=== PATIENT | male | born 1955 | race Caucasian/White ===

== ENCOUNTER 2016-12-14 16:39 | Emergency (ER) | payer SELFPAY ==
[~2016-12-14] VITALS: Ht 200.7 cm; Wt 100.0 kg
[~2016-12-14 16:39] MED LIST: ACET325 PO; GUAI100S6 PO; IBUP400T20 PO; PROM25SU8 PO
[2016-12-14 16:40] VITALS: BP 120/77; PULSE 96; RESP 17; TEMP 97.8; O2SAT 98
--- NOTE | 2016-12-14 17:32 | PD ---
HPI Chief Complaint: Anxiety Time Seen by Provider: 17:31 Travel History International Travel<30 days: No Contact w/Intl Traveler<30days: No Traveled to known affect area: No History of Present Illness HPI 61-year-old male presents to the emergency department for evaluation of anxiety. Patient has many life stressors going on right now. 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 He is dealing with issues with his son. He does not go into details regarding this but his states he is having frequent panic attacks. 3 days ago he was started on Lexapro. His anxiety continues to worsen. He was prescribed 0.25 mg Xanax 2 times a day yesterday from his primary care provider. Patient states that he does not like how this feels. Patient continues to talk in circles and is focused on things that he needs to do and destroying his life. He is concerned he'll never be well. Denies suicidal or homicidal ideations. He has no other symptoms reported this time. [facility] Past Medical History Anxiety: Yes Diminished Hearing: No Past Surgical History Abdominal Surgery: Yes (hernia repair) Social History Alcohol Use: No Tobacco Use: No Allergies-Medications (Allergen,Severity, Reaction): Coded Allergies: No Known Allergies (Verified , 12/14/16) Reported Meds & Prescriptions Reported Meds & Active Scripts Active Vistaril (Hydroxyzine Pamoate) 25 Mg Cap 25 Mg PO QID PRN Reported Xanax (Alprazolam) 0.5 Mg Tab 0.5 Mg PO BID PRN Lexapro (Escitalopram Oxalate) 5 Mg Tab 5 Mg PO DAILY@1600 Review of Systems Except as stated in HPI: all other systems reviewed are Neg Physical Exam Narrative GENERAL: Well-nourished, well-developed patient, in no acute distress. Patient is very anxious during my time with him. He frequently grabs and rubs his hands. He is not well focused. He is having obsessive thoughts. SKIN: Focused skin assessment warm/dry. HEAD: Normocephalic. EYES: No scleral icterus. No injection or drainage. NECK: Supple, trachea midline. No JVD or lymphadenopathy. CARDIOVASCULAR: Regular rate and rhythm without murmurs, gallops, or rubs. RESPIRATORY: Breath sounds equal bilaterally. No accessory muscle use. GASTROINTESTINAL: Abdomen soft, non-tender, nondistended. MUSCULOSKELETAL: No cyanosis, or edema. BACK: Nontender without obvious deformity. No CVA tenderness. Data Data Last Documented VS Vital Signs Date Time Temp Pulse Resp B/P Pulse Ox O2 Delivery O2 Flow Rate FiO2 12/14/16 22:03 71 16 142/78 98 Room Air 12/14/16 16:40 97.8 Orders Hydroxyzine Pamoate (Vistaril) (12/14/16 18:15) Psych Screen (12/14/16 18:16) Diet Heart Healthy (12/15/16 Breakfast) Hydroxyzine Pamoate (Vistaril) (12/14/16 22:00) Lorazepam (Ativan) (12/14/16 22:00) MDM Medical Decision Making Medical Screen Exam Complete: Yes Emergency Medical Condition: Yes Medical Record Reviewed: Yes Differential Diagnosis Mood disorder versus personality disorder versus adjustment reaction disorder Narrative Course 61-year-old male presents to the emergency department with his for evaluation. Patient is having frequent panic attacks. His states that this causes her to be scared because she cannot talk him out of these. She states he grabs his hearing he panics and he pieces. Turns red and he breathes very quickly. His friend Dr. Herrera who is a primary care provider, called and spoke to me and states over the last week he has deteriorated quickly. He is having obsessive thoughts and is demonstrating very obsessive-compulsive behaviors. Dr. Herrera advised them to come to the emergency department for evaluation. Patient is not suicidal homicidal. He is obviously anxious and has difficult time focusing during conversation. Psychiatric screen has been ordered. After discussion, patient is recommended to stay to speak with psychiatry in the morning. Patient's is concerned that the patient needs to be switched from Lexapro to Zoloft to help with his obsessive-compulsive tendencies. They're very concerned about his excessive anxiety and its impact on his life currently. goes home. Patient will stay overnight to speak with psychiatry in the morning. He is given 2 mg Ativan by mouth. He is placed in a hospital bed for comfort. Diagnosis Primary Impression: Adjustment reaction with anxiety Additional Impression: Panic attack due to exceptional stress Referrals: Primary Care Physician Psychiatrist Patient Instructions: Anxiety (ED), General Instructions Additional Instructions: Continue medication as prescribed Follow-up primary care provider Seek psychiatry evaluation Return immediately with any acute worsening of symptoms Med/Other Pt SpecificInfo: Prescription(s) given Scripts Hydroxyzine Pamoate (Vistaril)25 Mg Cap25 Mg PO QID PRN (ANXIETY) #20 CAP Ref 0 Prov:Rosey Hull 12/14/16 Condition: Stable Rosey Hull Dec 14, 2016 17:31
[2016-12-14] MEDS ORDERED: LEXA5TAB PO (17:52)
[2016-12-14] MEDS ORDERED: ALPR.5 PO (17:52)
[2016-12-14] MEDS ORDERED: hydrOXYzine PAMOATE 25 MG CAP PO ONE (18:15)
[2016-12-14] MEDS ORDERED: VIST25CA PO (20:04)
[2016-12-14] MEDS ORDERED: LORazepam 2 MG TAB PO ONE (22:00)
[2016-12-14 22:03] VITALS: BP 142/78; PULSE 71; RESP 16; O2SAT 98
[2016-12-15 08:48] VITALS: BP 172/80; PULSE 111; RESP 16; TEMP 98.9; O2SAT 98
[2016-12-15] MEDS ORDERED: CLON.5 PO (11:03)
--- NOTE | 2016-12-15 20:14 | MB ---
cc: RAUL CONNORS MD DATE OF CONSULTATION 12/15/2016 REQUESTING PHYSICIAN Emergency department. REASON FOR CONSULTATION Voluntary psychiatric evaluation. HISTORY OF PRESENT ILLNESS Mr. Sherwood is a 61-year-old male with no reported past psychiatric history who presented voluntarily for psychiatric evaluation for complaints of anxiety. Case discussed. Chart reviewed. Reviewing the electronic medical record, I see no prior psychiatric contact within our system. I do see that the patient was given 2 mg of Ativan last night as well as some Vistaril slightly earlier in the evening. The patient seen and examined. Chart reviewed. Case discussed with nurse in the alpha pod. On my examination today, the patient presents as fairly anxious. He describes chiefly generalized anxiety with a lot of anxious rumination which results in disrupted sleep. Concentration is poor. Appetite is somewhat poor. 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 He also describes occasional periods of panic. No obsessions or compulsions. No other anxious symptoms. He does admit to some difficulties with a low mood as a consequence of his high anxiety and admits that he feels somewhat like a failure. Some feelings of anhedonia. He denies any suicidal or homicidal ideation, however, on direct questioning. No hypomanic or manic symptoms. He denies any audiovisual hallucinations and I can elicit no delusional beliefs. The remainder of the psychiatric ROS is negative. PAST PSYCHIATRIC HISTORY The patient denies a history of inpatient or outpatient psychiatric treatment. He denies a history of suicide attempts. He has recently seen his general practitioner for this anxiety and was started on Lexapro 5 mg daily as well as Xanax 0.25 mg twice daily as needed. He has been taking these for the last few weeks. FAMILY HISTORY The patient reports depression and anxiety in his father and brother. No other reported family psychiatric history. No reported family history of suicide. CHEMICAL DEPENDENCY HISTORY The patient denies any abuse of drugs or alcohol. SOCIAL HISTORY The patient reports that he lives with his of 41 years. They have four adult children. 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 He says that when several of his competitive were taking out television advertisements, he did not and so his business has declined. He denies any or legal history. Denies any access to guns or firearms. He is a [employer]. PAST MEDICAL HISTORY No reported significant medical problems. The patient notes that he had complete physical recently and was found to be in good health. He is unsure if he has had thyroid function tests. REVIEW OF SYSTEMS No reported headache, vision or hearing changes, chest pain, shortness of breath, bowel or bladder issues. No other physical complaints. PHYSICAL EXAMINATION VITAL SIGNS: Temperature 98.9, pulse 111, respirations 16, blood pressure 172/80, pulse oximetry 98% on room air. Physical examination was completed by the ED provider. On my examination today, the patient appears to be in no acute physical distress. No motor abnormalities noted. LABORATORY No laboratories were obtained this visit. It appears that the patient only has lab work from 2011 on file. I see no thyroid function tests on file. MENTAL STATUS EXAM The patient is in hospital gown. He is well-groomed. He is awake and alert and oriented x3. No evidence of delirium. No abnormal motor movements noted. Speech is within normal limits for rate, tone and volume. Language and fund of knowledge seem above-average. Mood is somewhat down and affect is blunted. Thought process circumstantial as can be seen with patients with anxiety disorders. No loosening of associations though. No evident delusions. Denies audiovisual hallucinations. Denies suicidal or homicidal ideation. Insight and judgment are fair. ASSESSMENT/PLAN 1. Mixed anxiety disorder, F41.3 2. Rule out some degree of comorbid depression. This is a 61-year-old male with psychiatric history as reported above who presently came voluntarily to the emergency department for psychiatric evaluation. The patient describes a high degree of generalized anxiety with some features of panic. There may also be some decrement in his mood, but this seems more reactive to the anxiety than independent of it. The patient is presently medicated with low dose of Lexapro and Xanax. Given the severity of his anxiety problem, I think that titration of the Lexapro is warranted, although it is necessary to titrate this agent slowly as many SSRIs can be perceived as behaviorally activating if titrated too quickly, which can exacerbate anxiety. I have recommended that he talk with his general practitioner about titrating this by 5 mg a week or every other week to a target dose of 10-20 mg per day. Given that his anxiety is occurring throughout the day, I think that a longer acting benzodiazepine makes more sense while we wait for the SSRI to kick in. I have discussed the risks and benefits of a trial of Klonopin with the patient to replace his Xanax, and I have provided him with a seven day prescription for Klonopin 0.25 mg twice daily with subsequent refills to be provided by outpatient provider. The patient is not presently suicidal or homicidal. He appears to be attending to his basic needs. Consequently the patient does not meet Falk Act criteria, nor does he require involuntary psychiatric hospitalization. I have offered him voluntary psychiatric hospitalization for the management of his anxiety but he has declined. I have counseled the patient regarding warning signs for need to return to the psychiatric emergency room as part of a general safety plan. The patient also contacted his by telephone and I had an extensive teleconference with the patient and discussing the patient's diagnosis, prognosis and treatment plan in great detail. All questions answered. The patient also to be provided with an outpatient psychiatric referral packet. The patient is psychiatrically cleared for discharge from the ED. Thank you very much for this consultation. Raul GILBERT /11:30 AM /7:41 PM SARAHY
== END 2016-12-15 11:28 | disposition home or self-care (01) ==
LOC: NEPA 16:39
DX: F42.8 Other obsessive-compulsive disorder (principal); F43.22 Adjustment disorder with anxiety; F41.0 Panic disorder [episodic paroxysmal anxiety]
CPT/HCPCS: 99283; Q0177